=== PATIENT | male | born 1960 | race African-American/Black ===

== ENCOUNTER 2017-06-01 19:29 | Emergency (ER) | payer MEDICAID, OTHER ==
[~2017-06-01] VITALS: Ht 190.5 cm; Wt 91.0 kg
[2017-06-01] MEDS ORDERED: LIDOCAINE HCL 1% 20ML VIAL (Pyxis) INJ INFIL ONE (22:00)
[2017-06-01] MEDS ORDERED: HYDROCODONE/APAP 7.5/325MG 1 TAB TABLET PO ONE (22:00)
[2017-06-01] MEDS ORDERED: BACITRACIN ZINC OINT UDPKT TOP ONE (22:00)
[2017-06-01] MEDS ORDERED: TETANUS, DIPHTHERIA, PERTUSSIS VAC/PF 0.5ML (>7YR OLD) IM ONE (22:00)
[2017-06-02 01:00] VITALS: BP 126/77
== END 2017-06-02 01:27 | disposition home or self-care (01) ==
LOC: ER 19:29
DX: S61.411A Laceration without foreign body of right hand, initial encounter (principal); F17.210 Nicotine dependence, cigarettes, uncomplicated; W25.XXXA Contact with sharp glass, initial encounter; Y93.89 Activity, other specified; Y92.018 Other place in single-family (private) house as the place of occurrence of the external cause
CPT/HCPCS: 12002; 73130; 90471; 90715; 99284; J3490; X7700; Z7610

== ENCOUNTER 2018-01-08 13:04 | Emergency (ER) | payer MEDICAID, OTHER ==
[~2018-01-08] VITALS: Ht 190.5 cm; Wt 95.0 kg
[2018-01-08] MEDS ORDERED: KETOROLAC 60MG/2ML VIAL IM ONE (14:45)
[2018-01-08] MEDS ORDERED: HYDROCODONE/ACETAMINOPHEN 5/325MG TABLET PO ONE (18:00)
[2018-01-08] MEDS ORDERED: CYCLOBENZAPRINE 10MG TABLET PO ONE (18:00)
[2018-01-08 18:16] VITALS: BP 128/73
== END 2018-01-08 18:45 | disposition home or self-care (01) ==
LOC: ER 16:47
DX: M62.830 Muscle spasm of back (principal); R05 Cough; F17.200 Nicotine dependence, unspecified, uncomplicated; F12.10 Cannabis abuse, uncomplicated
CPT/HCPCS: 96372; 99283; J1885; Z7610

== ENCOUNTER 2018-05-10 05:43 | Emergency (ER) | payer OTHER ==
[~2018-05-10] VITALS: Ht 190.5 cm; Wt 94.5 kg
[2018-05-10] MEDS ORDERED: FLUORESCEIN SODIUM 1MG/STRIP RIGHTEYE ONE (08:15)
[2018-05-10 09:30] VITALS: BP 108/73
[2018-05-10] MEDS ORDERED: TETRACAINE 0.5% OPHTH DROPS 4ML RIGHTEYE ONE (10:30)
== END 2018-05-10 11:10 | disposition home or self-care (01) ==
LOC: ER 05:43
DX: J34.2 Deviated nasal septum (principal); F17.200 Nicotine dependence, unspecified, uncomplicated; F12.10 Cannabis abuse, uncomplicated; Y04.0XXA Assault by unarmed brawl or fight, initial encounter; Y93.89 Activity, other specified; Y92.89 Other specified places as the place of occurrence of the external cause; Y99.8 Other external cause status
CPT/HCPCS: 70486; 99284